=== PATIENT | female | born 1985 | race Caucasian/White ===

== ENCOUNTER 2018-01-06 13:39 | Emergency (ER) | payer BC ==
[2018-01-06 20:02] VITALS: BP 109/68; PULSE 80; TEMP 98.1
== END 2018-01-06 15:30 | disposition home or self-care (01) ==
LOC: H.EROB2 13:39
DX: O36.8130 Decreased fetal movements, third trimester, not applicable or unspecified (principal); Z3A.37 37 weeks gestation of pregnancy

== ENCOUNTER 2018-01-22 12:13 | Emergency (ER) | payer BC ==
--- NOTE | 2018-01-22 14:15 | OBHP ---
Datetime: 01/22/2018 13:02 IP Adm Impression: Term, intrauterine ; No Active Labor IP Adm Impression Other: No evidence of Membrane Rupture IP Admit Plan: Observation/Evaluation; Discharge home Admit Comment, IP Provider: Pt is a 32 yo 40.1 wk presented to [facility] Due to suspected ROM at 1Am in morning. Pt state she woke up feeling a stream of liqued passing by her leg but the bed, was not soaked. Pt also report cramps once every hour, but denies vag bleeding, vag discharge or any other sy mptoms. PT denies chest pain, sob, abd pain, diarrhea, constipation, dysuria or polyuria. PCP: Dr. Zhou. Allergy None PMH none PSH none OBGYN: 1 NVD. No complication PFH None Social no smoke/ ETOH/ Or drug use Assessment and plan Pt is a 32 yo 40.1 wk presented to [facility] Due to suspected ROM at 1Am in morning. Pt is not acute distress FHS is reactive Nitrostat negative Negative for pooling Cervix is long and closed US is + for adequate fluid level, vertex No contraction noted on Tocometer Pt will be discharged and follow up with Dr. Zhou tomorrow Discussed with Dr Dave Branch PGY1 Attending Note; Patient was examined with resident and I agree with the above. Pelvic Type - PN: Adequate Extremities - PN: Normal Abdomen - PN: Normal Back - PN: Normal Breast - PN: Not Done Lungs - PN: Normal Heart - PN: Normal Thyroid - PN: Normal Neurologic - PN: Normal HEENT - PN: Normal General - PN: Normal Presentation-Admit: Vertex FHR - Baseline A Provider: 140 Comments, ACOG Physical Exam: Pt is not in acute distress heart s1/s2 heard no extra heart sound lung clear abd non-tender, bs+ Pelvic cervix close, no pooling noted Gestation - Est Wks by US: 40.1 Pool Provider: Negative Nitrazine Provider: Negative EGA AdmitDate IP: 40.1 Vital Signs Provider: Reviewed; Within Normal Limits IP Chief Complaint: Suspected ruptured membranes Genitourinary Exam: Normal DTRs - PN: Normal Datetime: 01/06/2018 15:17 IP Fetus A Comments: Reactive NST NICHD Variability Prov Fetus A: Moderate 6-25bpm NICHD Accel Fetus A IP Provider: [id number] NICHD Decel Fetus A IP Provider: None
[2018-01-22 17:59] VITALS: BP 126/76; PULSE 75; RESP 18; TEMP 98.1; O2SAT 99
[2018-01-23 03:35] VITALS: BMI 30.7
[2018-01-23] MEDS ORDERED: Oxytocin 30 UNIT 30 UNITS/500 ML BAG IV ONE (03:36)
[2018-01-23] MEDS ORDERED: Lactated Ringer's 1,000 ML IV SCH (03:45)
--- NOTE | 2018-01-23 04:12 | OBADHP ---
Datetime: 01/23/2018 04:01 Admit Comment, IP Provider: 32yo with IUP at 40w2d presenting ere with pelvic pain and pressure since 1 am. She denies VB but could feel good movements. Pt was seen yesterday for and evaluat ed for PROM which was not confirmed and was sent home. PNC: with Dr Zhou PMHx: None. OBHx: , Uncomplicated in 2014 PSHx: None Social Hx: No toxic habits O; Afebrile Heart: RRR CHest: CTA B/L Abd: Soft, NT, BS- present FHR: 120s, with moderate variabilities [place]: Q 3-5 Assessment: IUP at Term in Labor Plan: Admit to Labor and delivery Monitor the progress of labor. Pelvic Type - PN: Adequate Extremities - PN: Normal Abdomen - PN: Normal Back - PN: Normal Breast - PN: Normal Lungs - PN: Normal Heart - PN: Normal Thyroid - PN: Normal Neurologic - PN: Normal HEENT - PN: Normal General - PN: Normal Presentation-Admit: Vertex FHR - Baseline A Provider: 120s Membranes, Provider: Intact Gestation - Est Wks by US: 40.2 Vital Signs Provider: Reviewed IP Chief Complaint: Uterine contractions; Maternal discomfort NICHD Variability Prov Fetus A: Moderate 6-25bpm NICHD Accel Fetus A IP Provider: [id number] FHR Category Provider Fetus A: Category I Dilatation, Provider: 3 Effacement, Provider: 100 Station, Provider: -3 Genitourinary Exam: Normal DTRs - PN: Normal EGA AdmitDate IP: 40.0 IP Adm Impression: Term, intrauterine ; Active labor IP Admit Plan: Admit to unit; Initiate labor protocol Datetime: 01/22/2018 13:02 IP Adm Impression Other: No evidence of Membrane Rupture Contraction Comments Provider: None Comments, ACOG Physical Exam: Pt is not in acute distress heart s1/s2 heard no extra heart sound lung clear abd non-tender, bs+ Pelvic cervix close, no pooling noted Pool Provider: Negative Nitrazine Provider: Negative NICHD Decel Fetus A IP Provider: None Datetime: 01/06/2018 15:17 IP Fetus A Comments: Reactive NST
== END 2018-01-22 13:15 | disposition home or self-care (01) ==
LOC: H.EROB2 12:13 → H.L&D 13:04 → H.EROB2 13:15
DX: O34.63 Maternal care for abnormality of vagina, third trimester (principal); N89.8 Other specified noninflammatory disorders of vagina; O48.0 Post-term pregnancy; Z3A.40 40 weeks gestation of pregnancy

== ENCOUNTER 2018-01-23 02:26 | Inpatient (IN) | payer BC ==
[2018-01-23] MEDS: Lactated Ringer's 1,000 ML IV SCH ×2 (03:30→04:30)
[2018-01-23 03:50] VITALS: BMI 30.2
[2018-01-23] MEDS ORDERED: Fentanyl/Bupivacaine HCl 250 ML EPI ONE (04:11)
[2018-01-23 05:02] LABS: BASO # 0.1 K/uL (0.0-0.2); BASO % 0.5 % (0.0-2.0); EOS # 0.1 K/uL (0.0-0.7); HEMOGLOBIN 12.6 g/dL (12.0-16.0); LYMPH % 13.6 % (20.0-40.0); MEAN CELL VOLUME 80.8 fl (81.0-99.0); MEAN CORPUSCULAR HEMOGLOBIN 26.3 pg (27.0-31.0); MEAN CORPUSCULAR HGB CONC 32.5 g/dL (33.0-37.0); MEAN PLATELET VOLUME 7.4 fl (7.2-11.7); MONO % 6.3 % (0.0-10.0); NEUT # 11.8 K/uL (1.8-7.0); NEUT % 78.6 % (50.0-75.0); NRBC % 0.1 % (0.0-0.0); RBC 4.79 Mil/uL (3.80-5.20); RED CELL DISTRIBUTION WIDTH 14.8 % (11.5-14.5)
[2018-01-23] MEDS ORDERED: ePHEDrine 50 mg/ml Inj ONE (05:45)
--- NOTE | 2018-01-23 07:38 | OBPN ---
Datetime: 01/23/2018 07:34 IP Progress Impression: Normal progression of labor; Reassuring heart rate IP Informed Consent Obtain: Vaginal Delivery IP Procedures: Sterile Vag Exam IP Progress Plan: Continue present management; Anticipate Vaginal Delivery Membranes, Provider: Intact Contraction Comments Provider: Q2-3 FHR - Baseline A Provider: 130 Gestation - Est Wks by US: 40.2 Presentation-Admit: Vertex IP Progress Note Comment: IUP at 40.2wks in labor Reassuring maternal status plan: Continue Monitoring the progress of labor Anticipate vaginal delivery.amp Vital Signs Provider: Reviewed NICHD Accel Fetus A IP Provider: [id number] FHR Category Provider Fetus A: Category I NICHD Variability Prov Fetus A: Moderate 6-25bpm Dilatation, Provider: 9 Effacement, Provider: 100 Station, Provider: -2 NICHD Decel Fetus A IP Provider: None Datetime: 01/22/2018 13:02 Pool Provider: Negative Nitrazine Provider: Negative Datetime: 01/06/2018 15:17 IP Fetus A Comments: Reactive NST
[2018-01-23] MEDS ORDERED: Oxytocin 30 UNIT 30 UNITS/500 ML BAG IV ONE (09:39)
[2018-01-23] MEDS ORDERED: Benzocaine/Menthol SPRAY TOP PRN ×2 (09:43→13:16)
--- NOTE | 2018-01-23 09:52 | OBDS ---
MATERNAL INFORMATION Provider Comments: of live male 6lbs 4 oz, 9/9, over intact perineum in NATE presentation , followed by shoulders and rest of , mouth and nose suctioned on mother's chest, cord clamped and cut, cord blood obtained, placenta delivered spontaneously, fundus firm, EBL = 100mL, first degre e laceration repaired with 2-0 vicryl rapide, pt tolerated procedure well LABOR SUMMARY EDC: 01/23/2018 00:00 No. Babies in Womb: 1 LABOR INFORMATION Onset of Labor: 01/23/2018 01:00 Group B Beta Strep: Negative PRESENTATION/POSITION BABY A Presentation: Cephalic
[2018-01-23] MEDS ORDERED: Oxytocin 30 units/LR 500ML 30 UNITS/500 ML BAG IV ONE (10:00)
[2018-01-23] MEDS ORDERED: Lactated Ringer's 1,000 ML IV SCH (13:16)
[2018-01-24 06:01] LABS: HEMOGLOBIN 11.2 g/dL (12.0-16.0); MEAN CORPUSCULAR HEMOGLOBIN 26.8 pg (27.0-31.0); MEAN CORPUSCULAR HGB CONC 33.1 g/dL (33.0-37.0); RBC 4.17 Mil/uL (3.80-5.20); RED CELL DISTRIBUTION WIDTH 14.9 % (11.5-14.5); WHITE BLOOD COUNT 11.5 K/uL (4.8-10.8)
[2018-01-24] MEDS ORDERED: Lansinoh for Breast Feeding Mothers TP ONE (07:36)
--- NOTE | 2018-01-24 09:08 | OBPPN ---
Datetime: 01/24/2018 09:04 PP Pain Prov: Within normal limits PP Nausea Prov: Denies PP Flatus Prov: Yes PP BM Prov: Yes PP Breasts Prov: Normal PP Heart Prov: Normal PP Lungs Prov: Normal PP Abdomen/Uterus Prov: Normal PP Lochia Prov: Normal PP Vulva/Perineum Prov: Normal PP CVA Tenderness Prov: Normal PP Extremities Prov: Normal PP Impression Prov: Endometritis PP Plan Prov: Continue present management PP Progress Note Prov: She is requesting Witch alyssa for perineum/anal area - no hemorrhoid but karin nuem feels better with 1st delivey acc to pt. No issues this AM H/H A; S/P day 1 PLAN: cont post care for discharge AM Vital Signs Provider PP: Reviewed; Within Normal Limits
--- NOTE | 2018-01-25 12:06 | OBDCSUM ---
Datetime: 01/25/2018 10:53 Discharged to, Provider: Home Follow up at, Provider: 4-6 weeks Disch Instr Activity: Normal activity; May be up to bathroom; May be up for meals; May Shower Disch Instr Diet: Regular Discharge Instructions, Provider: Routine instructions given Discharge Diagnosis, Provider: Term Delivered Discharge Time: 01/25/2018 10:53 Follow up in weeks, Provider: OB Disch Referrals: None Contraception discussed, Prov: Yes Disch Activity Restrictions: Minimize stair-climbing; No sexual activity; Nothing in vagina - Interc ourse, tampons, douche Discharge Comment, Provider: Patient cleared for discharge Contraception after Delivery: Undecided Datetime: 01/22/2018 13:05 Disch Instr Activity: Normal activity; May be up to bathroom; May be up for meals; May Shower Disch Activity Restrictions: Minimize stair-climbing; No sexual activity; Nothing in vagina - Interc ourse, tampons, douche
--- NOTE | 2018-01-25 12:10 | OBPPN ---
Datetime: 01/25/2018 12:05 PP Pain Prov: Within normal limits PP Nausea Prov: Denies PP Flatus Prov: Yes PP Breasts Prov: Not Done PP Heart Prov: Normal PP Lungs Prov: Normal PP Abdomen/Uterus Prov: Normal PP Lochia Prov: Not Done PP Vulva/Perineum Prov: Not Done PP CVA Tenderness Prov: Normal PP Extremities Prov: Normal PP Impression Prov: Normal progression PP Plan Prov: Discharge PP Progress Note Prov: Patient cleared for discharge Vital Signs Provider PP: Reviewed
[2018-01-25 19:08] VITALS: BP 128/80; PULSE 60; RESP 20; TEMP 98; O2SAT 98
== END 2018-01-25 13:45 | disposition home or self-care (01) | DRG 807 ==
LOC: H.EROB2 02:26 → H.L&D 03:36 → H.OB/GYN 12:40
PROVIDERS: ADMIT Obstetrics & Gynecology; ATTEND Obstetrics & Gynecology
PROC: 10E0XZZ Delivery of Products of Conception, External Approach (ICD-10-PCS; principal; 2018-01-23)
PROC: 0HQ9XZZ Repair Perineum Skin, External Approach (ICD-10-PCS; 2018-01-23)
PROC: 4A1HXCZ Monitoring of Products of Conception, Cardiac Rate, External Approach (ICD-10-PCS; 2018-01-23)
DX: O48.0 Post-term pregnancy (principal); Z37.0 Single live birth; O70.0 First degree perineal laceration during delivery; Z3A.40 40 weeks gestation of pregnancy